=== PATIENT | male | born 1980 | race Caucasian/White ===

== ENCOUNTER → 2020-11-14 15:59 | Outpatient (BNVA) | payer SELFPAY | DX: M54.9 Dorsalgia, unspecified (principal); S39.012A Strain of muscle, fascia and tendon of lower back, initial encounter; X58.XXXA Exposure to other specified factors, initial encounter | CPT/HCPCS: 81000 ==

== ENCOUNTER 2021-09-09 20:13 | Inpatient (IN) | payer SELFPAY ==
[2021-09-09 20:19] VITALS: BP 178/90; PULSE 109; RESP 16; TEMP 36.6; O2SAT 99; BMI 25.1
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
[2021-09-09] MEDS: acetaminophen 500 mg Tablet 1000 MG PO (20:45)
[2021-09-09] MEDS: ketorolac 30 mg/mL INJ 15 MG IM (20:45)
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
[2021-09-09 21:09] LABS: Basophils % 0.3 %; Eosinophils # 0.5 10^3/uL (0.0-0.8); Eosinophils % 5.7 %; Hematocrit 49.5 % (42.0-52.0); Hemoglobin 16.5 g/dL (11.7-16.6); Lymphocytes # 3.3 10^3/uL (0.8-4.8); Lymphocytes % 35.7 %; Mean Corpuscular HGB Conc 33.3 g/dL (30.0-36.0); Mean Corpuscular Hemoglobin 30.1 pg (28.0-34.0); Mean Corpuscular Volume 90.2 fl (80-94); Mean Platelet Volume 11.5 fL (7.4-10.4); Monocytes # 0.7 10^3/uL (0.2-0.9); Monocytes % 7.3 %; Neutrophils # 4.65 10^3/uL (1.8-7.7); Neutrophils % 50.9 %; Nucleated Red Blood Cells % 0 %; Platelet Count 189 10^3/cmm (130-400); Red Blood Count 5.49 10^6/uL (4.1-5.3); Red Cell Distribution Width 13.2 % (12.1-15.1); White Blood Count 9.2 10^3/uL (4.0-10.0)
[2021-09-09 21:32] LABS: Alanine Aminotransferase 25 U/L (0-41); Albumin Level 4.2 g/dL (3.5-5.2); Alkaline Phosphatase 100 IU/L (40-130); Anion Gap 14.5 (5-19); Aspartate Amino Transferase 53 U/L (0-40); Blood Urea Nitrogen 5 mg/dL (6-20); Calcium 8.6 mg/dL (8.5-10.5); Carbon Dioxide 25 mmol/L (22-29); Chloride 101 mmol/L (98-107); Globulin 2.9 g/dL (1.3-4.6); Glomerular Filtration Rate 147.8 mL/min (90-130); Glucose 93 mg/dL (65-115); Osmolality Calculated 281 mOsm/kg (285-295); Potassium 3.5 mmol/L (3.5-5.1); Sodium 137 mmol/L (136-145); Total Bilirubin 0.5 mg/dL (0.15-1.2); Total Protein 7.1 g/dL (6.6-8.7)
[2021-09-09 21:33] LABS: Amphetamines Screen Urine Negative (Negative); Barbiturates Screen Urine Negative (Negative); Benzodiazepines Screen Urine Negative (Negative); Cocaine Screen Urine Negative (Negative); Opiate Screen Urine Negative (Negative); PCP Screen Urine Negative (Negative); THC Screen Urine Positive (Negative)
[2021-09-09 21:34] LABS: Acetaminophen < 5.0 ug/mL (10-30); Alcohol Level < 10 mg/dL (0-10); Salicylate < 0.3 mg/dL (3-10)
[2021-09-09 22:16] VITALS: BP 145/86; PULSE 88; RESP 20; O2SAT 97
--- NOTE | 2021-09-09 22:39 | XRR_ITS ---
PROCEDURE INFORMATION: Exam: XR Lumbosacral Spine Exam date and time: 09/09/2021 10:39 PM Age: 41 years old Clinical indication: Low back pain TECHNIQUE: Imaging protocol: XR of the lumbosacral spine. Views: 2 or 3 views. COMPARISON: No relevant prior studies available. FINDINGS: Bones/joints: Six lumbar vertebra are noted. No lumbar spine fracture or significant degenerative change is seen. The disc spaces and vertebral body heights are well maintained. Spinal alignment is normal. Soft tissues: Unremarkable. XR/XR lumbar spine 2-3V* [id number] IMPRESSION: No acute finding. Radiation Dose CTDIVOL = (mGy): DLP = (mGy-cm)
[2021-09-09 23:21] VITALS: BP 149/90; PULSE 89; RESP 18; O2SAT 98
[2021-09-09 23:22] VITALS: BP 145/86; PULSE 88; RESP 20; O2SAT 97
[2021-09-10] MEDS: trazodone 50 mg Tablet PO (00:34)
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
[2021-09-10 06:00] VITALS: BP 116/73; PULSE 79; RESP 17; O2SAT 99
[2021-09-10] MEDS: acetaminophen 325 mg Tablet 650 MG PO ×5 (06:39→21:19)
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
[2021-09-10] MEDS: nicotine 2 mg Gum BUCCAL ×6 (08:53→21:29)
--- NOTE | 2021-09-10 13:01 | NPU.GN ---
[facility] Topic: Self Care Bingo/ Crisis Plan Work Sheet General Mood of Group: Jordan did not attend group this morning as he was doing something with nursing staff at nursing station. This blurb writer did meet with patient after group and he was aided in completing the intake packet for [facility] services. He is currently homeless and needs services. His demeanour was polite and he has willingness to get help and change for his self and children that he has not seen in years.
[2021-09-10 14:00] VITALS: BP 147/83; PULSE 96; RESP 17; TEMP 36.1; O2SAT 97
[2021-09-10] MEDS: TRAMadol 50 mg Tablet PO ×2 (14:02→19:25)
[2021-09-10] MEDS: ibuprofen 800 mg tablet PO (18:47)
[2021-09-10 22:00] VITALS: RESP 18
[2021-09-11] MEDS: nicotine 2 mg Gum BUCCAL ×3 (00:43→15:19)
[2021-09-11] MEDS: TRAMadol 50 mg Tablet PO ×2 (01:28→08:22)
[2021-09-11] MEDS: trazodone 50 mg Tablet PO (01:29)
[2021-09-11 06:00] VITALS: RESP 17
[2021-09-11] MEDS: ibuprofen 800 mg tablet PO (06:47)
[2021-09-11] MEDS: acetaminophen 325 mg Tablet 650 MG PO ×2 (06:47→10:38)
[2021-09-11] MEDS: nicotine 21 mg Patch 1 PATCH TRANSDERMA (08:55)
--- NOTE | 2021-09-11 12:42 | NPU.GN ---
[facility] Topic:Positive Thinking / Positive Affirmations General Mood of Group: Jordan did great in group and gave the rest of the group advice. He does not seem mentally or emotionally unstable. He does have alot of family drama, and he is homeless and wants to stay in [place] closer to his children. He was social and stood up in group and gave a voodoo speech about hope and anupama solomon uplift and give others hope that things will get better.
[2021-09-11 14:00] VITALS: BP 170/94; PULSE 97; RESP 20; TEMP 36.2; O2SAT 97
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
[2021-09-11 14:45] VITALS: BP 170/94; PULSE 97; RESP 17; TEMP 36.2; O2SAT 97
== END 2021-09-11 15:33 | disposition home or self-care (01) | DRG 885 ==
LOC: ER 20:30 → NP 22:58
PROVIDERS: Emergency Medicine; Admitting Provider Psychiatry & Neurology Psychiatry; Emergency Provider Emergency Medicine; Visit Provider Psychiatry & Neurology Psychiatry
DX: F33.3 Major depressive disorder, recurrent, severe with psychotic symptoms (principal); F12.20 Cannabis dependence, uncomplicated; F17.210 Nicotine dependence, cigarettes, uncomplicated; S02.2XXA Fracture of nasal bones, initial encounter for closed fracture; Y04.2XXA Assault by strike against or bumped into by another person, initial encounter; M54.50 Low back pain, unspecified; F15.21 Other stimulant dependence, in remission; Z81.8 Family history of other mental and behavioral disorders
CPT/HCPCS: 70450; 70486; 72100; 80053; 80306; 80307; 85025; 97150; 97165; 99285; J1885

== ENCOUNTER 2021-09-13 11:55 | Emergency (ER) | payer SELFPAY ==
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
[2021-09-13 13:05] VITALS: BP 138/84; PULSE 109; RESP 16; TEMP 36.8; O2SAT 99; BMI 25.8
[2021-09-13 14:24] VITALS: BP 115/75; PULSE 82; RESP 18; O2SAT 97
[2021-09-13 14:35] VITALS: BP 127/91; PULSE 94; RESP 18; O2SAT 98
== END 2021-09-13 14:33 | disposition home or self-care (01) ==
PROVIDERS: Emergency Provider Emergency Medicine
DX: S09.8XXA Other specified injuries of head, initial encounter (principal); M54.50 Low back pain, unspecified; F17.210 Nicotine dependence, cigarettes, uncomplicated; Y04.2XXA Assault by strike against or bumped into by another person, initial encounter
CPT/HCPCS: 70450; 72125; 99282

== ENCOUNTER → 2023-09-06 11:47 | Outpatient (BNVA) | payer OTHER, SELFPAY | PROVIDERS: Visit Provider Nurse Practitioner Psychiatric/Mental Health | DX: Z79.899 Other long term (current) drug therapy (principal) | CPT/HCPCS: 80053; 80061; 83036 ==

== ENCOUNTER 2024-06-29 18:06 | Inpatient (IN) | payer MEDICARE, SELFPAY ==
[2024-06-29 18:07] VITALS: BP 156/98; PULSE 110; RESP 18; TEMP 36.7; O2SAT 95; BMI 24.3
--- NOTE | 2024-06-29 18:22 | ED.C_ITS ---
HPI - Psych 2 General: Chief Complaint: Psychiatric Symptoms Stated Complaint: 96 Time Seen by Provider: 06/29/24 18:07 Source: patient Mode of arrival: other (police) Limitations: no limitations History of Present Illness: Patient presents here with police under 96-hour hold. Patient was placed under 96-hour hold for hallucinations along with threats of harming people. He does have a history of depression along with drug abuse with psychosis. He has some erratic behavior here. Associated symptoms: Reports homicidal ideation Related Data Previous Rx's Medication Instructions Recorded quetiapine 25 mg tablet (Seroquel) 25 mg PO BID PRN 12/16/23 anxiety/agitation/psychosis #30 tabs trazodone 100 mg tablet 100 mg PO BEDTIME PRN sleep #30 02/17/24 tabs Allergies Allergy/AdvReac Type Severity Reaction Status Date / Time No Known Allergies Allergy Verified 12/16/23 09:21 Review of Systems 2 Const: Denies: fever(s), chills, body aches or change in appetite ENMT: Denies: throat pain or dental pain Card: Denies: chest pain Resp: Denies: dyspnea GI: Denies: abdominal pain, nausea, vomiting or diarrhea Musc: Denies: neck pain or back pain Skin/Breast: Denies: rash Neuro: Denies: headache(s) Psych: Reports: homicidal ideation [facility] ED 2 PFSH: Medical History Marijuana use, episodic Methamphetamine use disorder, moderate, in sustained remission Psychiatric care Nicotine dependence, uncomplicated Major depressive disorder, recurrent, severe with psychotic symptoms Social History Smoking and tobacco/nicotine status: current every day tobacco/nicotine user Alcohol intake: never Substance/Drug Use: former Current gender identity: Male Special anupama needs: No Agree to transfusion: Yes Physical Exam 2 Const: COMMON NORMALS: no acute distress, patient oriented x3 and healthy appearing HENMT: COMMON NORMALS: normocephalic and atraumatic HEAD & SCALP: n ormocephalic and atraumatic Eye: COMMON NORMALS: Equal, round and reactive pupils present and EOMs intact bilaterally PUPIL: Yes Equal, round and reactive pupils present Neck/C-Spine: COMMON NORMALS: full ROM and supple Chest: COMMONS NORMALS: normal inspection of the chest Resp: COMMON NORMALS: normal respiratory effort Cardio: COMMON NORMALS: regular rate, regular rhythm and No murmurs present (Cardio) RATE: regular rate RHYTHM: regular rhythm Extremity: COMMON NORMALS: normal to inspection and full ROM Neuro: COMMON NORMALS: patient oriented x3, moves all extremities and no focal motor deficits Psych: COMMON NORMALS: mental status grossly normal, Normal thought process present and cooperative THOUGHT PROCESS: Normal thought process present Skin: COMMON NORMALS: no rashes or lesions noted and no wounds GENERAL SKIN EXAM: no rashes or lesions noted Course 2 Vital Signs: Vital signs: Vital Signs Temperature 98.1 F 06/29/24 18:07 Pulse Rate 110 H 06/29/24 18:07 Respiratory Rate 18 06/29/24 18:07 Blood Pressure 156/98 06/29/24 18:07 Pulse Oximetry 95 06/29/24 18:07 Oxygen Delivery Me thod Room Air 06/29/24 18:07 MDM - Psych Medical Decision Making Patient presents with acute psychosis on a 96-hour hold with [facility] patient is medically cleared I spoke to psychiatrist will admit Medical Records I reviewed the patient's medical records. Lab Data I reviewed the patient's lab results. 06/29/24 18:21 06/29/24 18:21 Laboratory Results WBC 9.70 10^3/uL (3.29-11.43) 06/29/24 18:21 RBC 5.76 10^6/uL (3.85-5.65) H 06/29/24 18:21 Hgb 17.50 g/dL (11.27-16.99) H 06/29/24 18:21 Hct 52.7 % (37-53) 06/29/24 18:21 MCV 91.5 fl (82-101) 06/29/24 18:21 MCH 30.4 pg (27-33) 06/29/24 18:21 MCHC 33.2 g/dL (30-55) 06/29/24 18:21 RDW 13.7 % (12.1-15.1) 06/29/24 18:21 Plt Count 164 10^3/cmm (157-399) 06/29/24 18:21 MPV 11.7 fL (7.4-10.4) H 06/29/24 18:21 Neut % (Auto) 83.4 % 06/29/24 18:21 Lymph % (Auto) 11.5 % 06/29/24 18:21 Alcorn % (Auto) 3.9 % 06/29/24 18:21 Eos % (Auto) 0.7 % 06/29/24 18:21 Baso % (Auto) 0.3 % 06/29/24 18:21 Neut # (Auto) 8.08 10^3/uL (1.8-7.7) H 06/29/24 18:21 Lymph # (Auto) 1.1 10^3/uL (0.8-4.8) 06/29/24 18:21 Alcorn # (Auto) 0.4 10^3/uL (0.2-0.9) 06/29/24 18:21 Eos # (Auto) 0.1 10^3/uL (0.0-0.8) 06/29/24 18:21 Baso # (Auto) 0.0 10^3/uL (0.0-0.1) 06/29/24 18:21 Nucleated RBC % (auto) 0 % 06/29/24 18:21 Nucleated RBCs # 0.0 /100WBC 06/29/24 18:21 Sodium 134 mmol/L (136-145) L 06/29/24 18:21 Potassium 4.9 mmol/L (3.5-5.1) 06/29/24 18:21 Chloride 98 mmol/L (98-107) 06/29/24 18:21 Carbon Dioxide 25 mmol/L (22-29) 06/29/24 18:21 Anion Gap 15.9 (5-19) 06/29/24 18:21 BUN 14 mg/dL (6-20) 06/29/24 18:21 Creatinine 0.7 mg/dL (0.7-1.2) 06/29/24 18:21 GFR Calculation 122.0 mL/min (90-130) 06/29/24 18:21 Glucose 102 mg/dL (65-115) 06/29/24 18:21 Calculated Osmolality 279 mOsm/kg (285-295) L 06/29/24 18:21 Calcium 9.4 mg/dL (8.5-10.5) 06/29/24 18:21 Total Bilirubin 0.2 mg/dL (0.15-1.2) 06/29/24 18:21 AST 15 U/L (0-40) 06/29/24 18:21 ALT 13 U/L (0-41) 06/29/24 18:21 Alkaline Phosphatase 132 U/L (40-130) H 06/29/24 18:21 Total Protein 8.2 g/dL (6.6-8.7) 06/29/24 18:21 Albumin 4.9 g/dL (3.5-5.2) 06/29/24 18:21 Globulin 3.3 g/dL (1.3-4.6) 06/29/24 18:21 Salicylates < 0.3 mg/dL (3-10) L 06/29/24 18:21 Acetaminophen < 5.0 ug/mL (10-30) L 06/29/24 18:21 Ethyl Alcohol < 10 mg/dL (0-10) 06/29/24 18:21 No radiology studies performed this visit Discharge Plan Discharge Patient Disposition: Admitted As Inpatient Clinical Impression: Acute psychosis Condition: Stable Prescriptions: No Action trazodone 100 mg tablet 100 mg PO BEDTIME PRN (Reason: sleep) Qty: 30 3RF Rx Instructions: May take one tablet at bedtime as needed for sleep quetiapine [Seroquel] 25 mg tablet 25 mg PO BID PRN (Reason: anxiety/agitation/psychosis) Qty: 30 3RF Rx Instructions: Take 1 tablet twice per day as needed for anxiety/agitation/psychosis Coding Level of Care Code ED 2 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
[2024-06-29 18:27] LABS: Basophils % 0.3 %; Eosinophils # 0.1 10^3/uL (0.0-0.8); Eosinophils % 0.7 %; Hematocrit 52.7 % (37-53); Lymphocytes # 1.1 10^3/uL (0.8-4.8); Lymphocytes % 11.5 %; Mean Corpuscular HGB Conc 33.2 g/dL (30-55); Mean Corpuscular Hemoglobin 30.4 pg (27-33); Mean Corpuscular Volume 91.5 fl (82-101); Mean Platelet Volume 11.7 fL (7.4-10.4); Monocytes # 0.4 10^3/uL (0.2-0.9); Monocytes % 3.9 %; Neutrophils # 8.08 10^3/uL (1.8-7.7); Neutrophils % 83.4 %; Nucleated Red Blood Cells % 0 %; Platelet Count 164 10^3/cmm (157-399); Red Blood Count 5.76 10^6/uL (3.85-5.65); Red Cell Distribution Width 13.7 % (12.1-15.1)
[2024-06-29] MEDS: LORazepam 2 mg/mL INJ 1 mL IM (18:30)
[2024-06-29 18:46] LABS: Alanine Aminotransferase 13 U/L (0-41); Albumin Level 4.9 g/dL (3.5-5.2); Alkaline Phosphatase 132 U/L (40-130); Anion Gap 15.9 (5-19); Aspartate Amino Transferase 15 U/L (0-40); Blood Urea Nitrogen 14 mg/dL (6-20); Calcium 9.4 mg/dL (8.5-10.5); Carbon Dioxide 25 mmol/L (22-29); Chloride 98 mmol/L (98-107); Creatinine Clr Calc Pharmacy 132.0764; Globulin 3.3 g/dL (1.3-4.6); Glucose 102 mg/dL (65-115); Osmolality Calculated 279 mOsm/kg (285-295); Potassium 4.9 mmol/L (3.5-5.1); Sodium 134 mmol/L (136-145); Total Bilirubin 0.2 mg/dL (0.15-1.2); Total Protein 8.2 g/dL (6.6-8.7)
[2024-06-29 18:49] LABS: Acetaminophen < 5.0 ug/mL (10-30); Alcohol Level < 10 mg/dL (0-10); Salicylate < 0.3 mg/dL (3-10)
--- NOTE | 2024-06-29 19:32 | PC.NURSE ---
96 hour hold rights read and reviewed with patient. Patient verbalized understandings. Copy of rights given to patient.
[2024-06-29 20:01] LABS: Amphetamines Screen Urine Negative (Negative); Barbiturates Screen Urine Negative (Negative); Benzodiazepines Screen Urine Negative (Negative); Cocaine Screen Urine Negative (Negative); Opiate Screen Urine Positive (Negative); PCP Screen Urine Negative (Negative); THC Screen Urine Positive (Negative)
[2024-06-29 20:50] VITALS: BP 140/81; PULSE 100; RESP 18; TEMP 36.5; O2SAT 95
[2024-06-29] MEDS: nicotine 2 mg Gum BUCCAL (21:16)
[2024-06-29 22:00] VITALS: BP 140/81; PULSE 100; RESP 18; TEMP 36.5; O2SAT 95
[2024-06-30] VITALS: BP 152/91; PULSE 92; RESP 18; TEMP 36.4; O2SAT 98
[2024-06-30] MEDS: trazodone 50 mg Tablet PO ×2 (02:40→20:57)
[2024-06-30] MEDS: cyclobenzaprine 10 mg Tablet PO ×2 (02:40→20:58)
[2024-06-30 04:00] VITALS: RESP 16
[2024-06-30] MEDS: nicotine 2 mg Gum BUCCAL ×3 (07:43→17:50)
[2024-06-30 08:00] VITALS: BP 124/82; PULSE 100; RESP 18; TEMP 36.9; O2SAT 96
[2024-06-30] MEDS: nicotine 21 mg Patch 1 PATCH TRANSDERMA (08:21)
[2024-06-30] MEDS: ibuprofen 600 mg Tablet PO ×2 (09:19→15:14)
[2024-06-30 11:36] VITALS: BP 152/79; PULSE 102; RESP 16; TEMP 36.6; O2SAT 98
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
[2024-06-30 16:00] VITALS: BP 123/91; PULSE 107; RESP 18; TEMP 36.3; O2SAT 98
[2024-06-30] MEDS: acetaminophen 325 mg Tablet 650 MG PO (17:50)
[2024-06-30 20:00] VITALS: BP 155/95; PULSE 110; RESP 17; TEMP 36.8; O2SAT 97
[2024-06-30] MEDS: hyDROXYzine 25 mg Capsule 50 MG PO (20:56)
[2024-07-01] VITALS: BP 143/77; PULSE 88; RESP 15; O2SAT 97
[2024-07-01 04:00] VITALS: BP 128/77; PULSE 83; RESP 16; O2SAT 98
[2024-07-01] MEDS: nicotine 2 mg Gum BUCCAL ×6 (07:43→19:52)
[2024-07-01 08:00] VITALS: BP 158/92; PULSE 110; RESP 18; TEMP 36.4; O2SAT 98
[2024-07-01] MEDS: ibuprofen 600 mg Tablet PO ×2 (10:28→18:11)
[2024-07-01] MEDS: cyclobenzaprine 10 mg Tablet PO ×2 (10:28→16:44)
[2024-07-01 12:00] VITALS: BP 145/75; PULSE 100; RESP 17; TEMP 36.8; O2SAT 97
--- NOTE | 2024-07-01 12:16 | P.NPUPN_ITS ---
Subjective NPU 2 Subjective: 44-year-old male with a history of psych osis admitted on an involuntary hold with increased paranoia. Patient continued to appear grandiose on the unit stating that he was especially ordained by God to serve a purpose and repeatedly stated that his father may be God. He had stated that he felt that his family and the police were trying to keep him here to keep him from revealing information that would lead to him finding his daughter. He states that he has not seen his daughter in a good deal of time and stated that he was uncertain about her whereabouts. He had stated that he would go back to his property if he were allowed to go home. Patient had continued to appear intrusive on the milieu often asking for information regarding his whereabouts and repeatedly asking to show the fiction and nonfiction prose writer of this note something on his phone that would change everything . Mental Status Exam 2 MSE Comments: 44-year-old male who appeared his stated age with poor hygiene and a normal gait. He was alert and oriented to person place and time. There was no evidence of any abnormal involuntary motor movements, tics,, or tremors. His speech was productive and normal in rate and volume. His mood was described as allright. His affect appeared irritable and expansive. His thought process was linear and focused on leaving the hospital. His thought content showed no evidence of active homicidal or suicidal ideation. There was hyperreligiousity, grandiosity and signficant ideas of reference. He did not appear to be responding to internal stimuli. His recent and remote memory were grossly intact. His insight was poor. His judgment was poor. His impulse control appeared limited. Vitals/I&O/Wt Last Vital Signs Temp 97.6 F 07/01/24 08:00 Pulse 110 H 07/01/24 08:00 Resp 18 07/01/24 08:00 BP 158/92 07/01/24 08:00 Pulse Ox 98 07/01/24 08:00 O2 Del Method Room Air 07/01/24 04:00 Weight last 48 hrs Weight 72.575 kg Data NPU 06/29/24 18:21 06/29/24 18:21 A&P Assessment and plan (1) Methamphetamine use disorder, moderate, in sustained remission: (2) Acute psychosis: Plan 44-year-old male with a past history of psychosis, and polysubstance abuse positive for opiates and marijuana endorsing current psychotic symptoms including delusions currently involuntarily placed and refusing medications. #1.? Engage patient in individual milieu and group therapy. #2?? Recommend sober living treatment at the highest level of care to which the patient is willing to commit #3???Will observe, patient may benefit from antipsychotic agent such as invega or abilify but is refusing at this time. Prn zyprexa may help for agitation. #4?? TO-15 minute checks #5?? Will attempt to gather collateral information Involuntary Hold Information 2 96 Hour Hold: 96 Hour Involuntary Admission: Yes 96 Hour Hold Ending Date: 07/05/24 96 Hour Hold Ending Time: 18:10 Attestations NPU 2 Medical Necessity Statement*: Inpatient hospitalization is medically necessary and deemed to ?be ?the clinically appropriate intervention ?at this time.? We will monitor/initiate medications and make changes as indicated.? The patient?s likely length of stay 5-7 days. Coding Level of Care Code Acute Code for [facility] Fwd Diagnoses Methamphetamine use disorder, moderate, in sustained remission F15.21 Acute psychosis F23
[2024-07-01 16:00] VITALS: BP 147/83; PULSE 104; RESP 18; TEMP 37; O2SAT 97
[2024-07-01] MEDS: acetaminophen 325 mg Tablet 650 MG PO (16:44)
[2024-07-01 19:45] VITALS: BP 145/84; PULSE 63; RESP 20; TEMP 36.6; O2SAT 99
[2024-07-01] MEDS: hyDROXYzine 25 mg Capsule 50 MG PO (21:04)
[2024-07-01] MEDS: trazodone 50 mg Tablet PO (21:04)
[2024-07-02] VITALS: BP 129/73; PULSE 80; RESP 16; TEMP 36.8; O2SAT 98
[2024-07-02 04:00] VITALS: BP 107/68; PULSE 70; RESP 18; TEMP 36.6; O2SAT 98
[2024-07-02] MEDS: nicotine 2 mg Gum BUCCAL ×6 (07:23→19:40)
[2024-07-02] MEDS: cyclobenzaprine 10 mg Tablet PO ×3 (07:43→20:43)
[2024-07-02] MEDS: ibuprofen 600 mg Tablet PO ×2 (07:45→16:50)
[2024-07-02 08:00] VITALS: BP 103/68; PULSE 106; RESP 17; TEMP 36.7; O2SAT 98
[2024-07-02 12:00] VITALS: BP 145/91; PULSE 100; RESP 17; TEMP 36.4; O2SAT 98
[2024-07-02] MEDS: acetaminophen 325 mg Tablet 650 MG PO ×2 (13:11→19:40)
--- NOTE | 2024-07-02 14:56 | P.NPUPN_ITS ---
Subjective NPU 2 Subjective: 44-year-old male with a history of psych osis admitted on an involuntary hold with increased paranoia. The patient had slept. He had reported no desire to take any medications at this time. He had stated that he would go back to his property and stated that he did not have thoughts of hurting himself or others. He continued to make statements about having some intermittent knowledge of God's orders and reported that he had not been using any drugs. He had remained somewhat suspicious of his family members activities. He had remained compliant and cooperative on the milieu. Mental Status Exam 2 MSE Comments: 44-year-old male who appeared his stated age with poor hygiene and a normal gait. He was alert and oriented to person place and time. There was no evidence of any abnormal involuntary motor movements, tics,, or tremors. His speech was productive and normal in rate and volume. His mood was described as allright. His affect appeared less irritable. His thought process was linear and logical. His thought content showed no evidence of active homicidal or suicidal ideation. There was hyperreligiousity, and grandiosity appreciated. He did not appear to be responding to internal stimuli. His recent and remote memory were grossly intact. His insight was poor. His judgment was poor. His impulse control appeared fair. Vitals/I&O/Wt Last Vital Signs Temp 97.6 F 07/02/24 12:00 Pulse 100 07/02/24 12:00 Resp 17 07/02/24 12:00 BP 145/91 07/02/24 12:00 Pulse Ox 98 07/02/24 12:00 O2 Del Method Room Air 07/02/24 04:00 Data NPU 06/29/24 18:21 06/29/24 18:21 A&P Assessment and plan (1) Methamphetamine use disorder, moderate, in sustained remission: (2) Acute psychosis: Plan 44-year-old male with a past history of psychosis, and polysubstance abuse positive for opiates and marijuana endorsing current psychotic symptoms including delusions currently involuntarily placed and refusing medications. #1.? Engage patient in individual milieu and group therapy. #2?? Recommend sober living treatment at the highest level of care to which the patient is willing to commit #3???Will observe, patient may benefit from antipsychotic agent such as invega or abilify but is refusing at this time. Prn zyprexa may help for agitation. #4?? TO-15 minute checks #5?? Will attempt to gather collateral information Involuntary Hold Information 2 96 Hour Hold: 96 Hour Involuntary Admission: Yes 96 Hour Hold Ending Date: 07/05/24 96 Hour Hold Ending Time: 18:10 Attestations NPU 2 Medical Necessity Statement*: Inpatient hospitalization is medically necessary and deemed to ?be ?the clinically appropriate intervention ?at this time.? We will monitor/initiate medications and make changes as indicated.? The patient?s likely length of stay 3-5 days. Coding Level of Care Code Acute Code for [facility] Fwd Diagnoses Methamphetamine use disorder, moderate, in sustained remission F15.21 Acute psychosis F23
[2024-07-02] MEDS: trazodone 50 mg Tablet PO (20:43)
[2024-07-02 21:26] VITALS: BP 177/102; PULSE 106; RESP 18; TEMP 36.6; O2SAT 97
[2024-07-03] MEDS: hyDROXYzine 25 mg Capsule 50 MG PO ×2 (02:48→20:33)
[2024-07-03 06:00] VITALS: BP 134/82; PULSE 83; RESP 17; TEMP 36.4; O2SAT 99
[2024-07-03] MEDS: nicotine 2 mg Gum BUCCAL ×6 (08:13→20:33)
[2024-07-03] MEDS: ibuprofen 600 mg Tablet PO ×3 (09:47→20:35)
[2024-07-03] MEDS: cyclobenzaprine 10 mg Tablet PO ×3 (09:47→20:36)
[2024-07-03] MEDS: acetaminophen 325 mg Tablet 650 MG PO ×2 (11:59→17:30)
[2024-07-03 14:00] VITALS: BP 161/91; PULSE 100; RESP 17; TEMP 36.6; O2SAT 97
--- NOTE | 2024-07-03 14:41 | P.NPUPN_ITS ---
Subjective NPU 2 Subjective: 44-year-old male with a history of psych osis admitted on an involuntary hold with increased paranoia. The patient was compliant and cooperative on the milieu. He had appeared less focused on issues associated with his admission. He had stated that he had nearly been upset that a family member had been molested and wished for that person to be incarcerated for his actions. He reported adequate sleep. Patient was redirectable on the milieu. He had indicated a past history of paranoia from the use of methamphetamine but again had reported recent avoidance of methamphetamine and improved ability to manage his mood. He had refused any medications and had reported normal sleep. Mental Status Exam 2 MSE Comments: 44-year-old male who appeared his stated age with poor hygiene and a normal gait. He was alert and oriented to person place and time. There was no evidence of any abnormal involuntary motor movements, tics,, or tremors. His speech was productive and normal in rate and volume. His mood was described as okay. His affect appeared euthymic. His thought process was linear and logical. His thought content showed no evidence of active homicidal or suicidal ideation. There was no hyperreligiousity, and no evidence of grandiosity today. He did not appear to be responding to internal stimuli. His recent and remote memory were grossly intact. His insight was adequate. His judgment was improving. His impulse control appeared fair. Vitals/I&O/Wt Last Vital Signs Temp 97.6 F 07/03/24 06:00 Pulse 83 07/03/24 06:00 Resp 17 07/03/24 06:00 BP 134/82 07/03/24 06:00 Pulse Ox 99 07/03/24 06:00 O2 Del Method Room Air 07/02/24 04:00 Weight last 48 hrs Weight 71.668 kg Data NPU 06/29/24 18:21 06/29/24 18:21 A&P Assessment and plan (1) Methamphetamine use disorder, moderate, in sustained remission: (2) Acute psychosis: Plan 44-year-old male with a past history of psychosis, and polysubstance abuse positive for opiates and marijuana endorsing current psychotic symptoms including delusions currently involuntarily placed and refusing medications. #1.? Engage patient in individual milieu and group therapy. #2?? Recommend sober living treatment at the highest level of care to which the patient is willing to commit #3??Patient appears to be improving with less paranoia and no overt delusions. Continue to observe with likely discharge tommorow. #4?? TO-15 minute checks #5?? Will attempt to gather collateral information Involuntary Hold Information 2 96 Hour Hold: 96 Hour Involuntary Admission: Yes 96 Hour Hold Ending Date: 07/05/24 96 Hour Hold Ending Time: 18:10 Attestations NPU 2 Medical Necessity Statement*: Inpatient hospitalization is medically necessary and deemed to ?be ?the clinically appropriate intervention ?at this time.? We will monitor/initiate medications and make changes as indicated.? The patient?s likely length of stay 1-2 days. Coding Level of Care Code Acute Code for [facility] Fwd Diagnoses Methamphetamine use disorder, moderate, in sustained remission F15.21 Acute psychosis F23
[2024-07-03 19:17] VITALS: BP 151/98; PULSE 109; RESP 20; TEMP 36.7; O2SAT 92
[2024-07-03] MEDS: trazodone 50 mg Tablet PO (20:35)
[2024-07-04 06:00] VITALS: BP 143/93; PULSE 102; RESP 20; TEMP 36.5; O2SAT 98
[2024-07-04] MEDS: nicotine 2 mg Gum BUCCAL ×2 (06:10→08:27)
[2024-07-04] MEDS: ibuprofen 600 mg Tablet PO (08:23)
[2024-07-04] MEDS: cyclobenzaprine 10 mg Tablet PO (08:23)
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
--- NOTE | 2024-07-04 09:24 | DCPLANNER ---
IMM completed 07/04/24 and pt was given a copy of his rights.
[2024-07-04 09:26] VITALS: BP 143/93; PULSE 102; RESP 20; TEMP 36.5; O2SAT 98
== END 2024-07-04 10:17 | disposition home or self-care (01) | DRG 885 ==
LOC: ER 19:32 → NP 19:37
PROVIDERS: Admitting Provider Psychiatry & Neurology Psychiatry; Emergency Provider Emergency Medicine; Visit Provider Psychiatry & Neurology Psychiatry
DX: F23 Brief psychotic disorder (principal); F33.2 Major depressive disorder, recurrent severe without psychotic features; R45.850 Homicidal ideations; F15.11 Other stimulant abuse, in remission; F12.20 Cannabis dependence, uncomplicated; Z81.8 Family history of other mental and behavioral disorders; F17.200 Nicotine dependence, unspecified, uncomplicated
CPT/HCPCS: 36415; 80053; 80306; 80307; 85025; 96372; 97150; 99285; J2060

== ENCOUNTER → 2024-11-23 13:26 | Outpatient (BNVA) | payer MEDICARE, SELFPAY | PROVIDERS: PCP Nurse Practitioner; Visit Provider Nurse Practitioner | DX: R30.0 Dysuria (principal) | CPT/HCPCS: 81000; 87086 ==